=== PATIENT | male | born 1980 | race Caucasian/White ===

== ENCOUNTER 2020-04-13 08:32 | Outpatient (REF) | payer OTHER, SELFPAY ==
[2020-04-13 08:57] LABS: COVID-19 Test Negative (Negative)
== END 2020-04-13 08:33 | disposition home or self-care (01) ==
LOC: HO.EMPCOV 08:32
PROVIDERS: Visit Provider Internal Medicine
DX: Z20.822 Contact with and (suspected) exposure to COVID-19 (principal)
CPT/HCPCS: 36415; 87635; C9803

== ENCOUNTER 2020-08-05 11:02 | Outpatient (REF) | payer OTHER, SELFPAY ==
[2020-08-05 12:46] LABS: Alanine Aminotransferase 17 U/L (0-40); Albumin Level 4.7 g/dL (3.5-5.0); Alkaline Phosphatase 59 U/L (39-117); Anion Gap 16 (12-20); Aspartate Amino Transferase 21 U/L (5-37); Bilirubin Total 0.4 mg/dL (0.0-1.0); Blood Urea Nitrogen 11 mg/dL (9-16); Calcium 9.6 mg/dL (8.4-10.2); Carbon Dioxide 27 mmol/L (22-29); Chloride 102 mmol/L (96-108); Cholesterol 204 mg/dL; Estimated Glomerular Filt Rate > 60; Glucose Random 84 mg/dL (60-115); HDL Cholesterol 37 mg/dL; LDL Cholesterol Calculated 118 mg/dl; Potassium 4.6 mmol/L (3.3-5.1); Sodium 140 mmol/L (135-145); Total Protein 7.9 g/dL (6.5-8.0); Triglycerides 246 mg/dL
[2020-08-08 04:27] LABS: ~HepC Num1 0.07 S/CO (0.00-0.79); ~Hepatitis C Antibody Nonreactive (Nonreactive)
== END 2020-08-05 11:03 | disposition home or self-care (01) ==
LOC: HO.LAB 11:02
PROVIDERS: PCP Internal Medicine; Visit Provider Internal Medicine
DX: Z11.59 Encounter for screening for other viral diseases (principal); E78.5 Hyperlipidemia, unspecified
CPT/HCPCS: 36415; 80053; 80061; 86803

== ENCOUNTER 2022-01-29 15:26 | Outpatient (REF) | payer OTHER, SELFPAY ==
--- NOTE | ~2022-01-29 | XR_ITS ---
EXAMINATION: X-RAY RIGHT HAND X-RAY LEFT HAND CLINICAL INFORMATION: Pain. COMPARISON: None TECHNIQUE: 3 views of each hand. FINDINGS: Right hand: No acute fracture or malalignment. Mild joint space narrowing of the first carpometacarpal joint and triscaphe space. No erosions or chondrocalcinosis. No abnormal soft tissue calcifications. Left hand: No acute fracture or malalignment. Mild joint space narrowing of the first carpometacarpal joint and triscaphe space. No erosions or chondrocalcinosis. No abnormal soft tissue calcifications. XR/XR hand RT min 3V IMPRESSION: 1. No acute fracture or malalignment. 2. Mild degenerative osteoarthritis of the first carpometacarpal joints and triscaphe joints bilaterally.
--- NOTE | ~2022-01-29 | XR_ITS ---
EXAMINATION: X-RAY RIGHT HAND X-RAY LEFT HAND CLINICAL INFORMATION: Pain. COMPARISON: None TECHNIQUE: 3 views of each hand. FINDINGS: Right hand: No acute fracture or malalignment. Mild joint space narrowing of the first carpometacarpal joint and triscaphe space. No erosions or chondrocalcinosis. No abnormal soft tissue calcifications. Left hand: No acute fracture or malalignment. Mild joint space narrowing of the first carpometacarpal joint and triscaphe space. No erosions or chondrocalcinosis. No abnormal soft tissue calcifications. XR/XR hand LT min 3V IMPRESSION: 1. No acute fracture or malalignment. 2. Mild degenerative osteoarthritis of the first carpometacarpal joints and triscaphe joints bilaterally.
== END 2022-01-29 15:27 | disposition home or self-care (01) ==
LOC: HO.XRAY 15:26
PROVIDERS: Visit Provider Internal Medicine
DX: M79.642 Pain in left hand (principal); M79.641 Pain in right hand
CPT/HCPCS: 73130

== ENCOUNTER → 2022-05-16 09:50 | Outpatient (BNVA) | payer OTHER, SELFPAY | PROVIDERS: PCP Internal Medicine; Visit Provider Student in an Organized Health Care Education/Training Program | DX: Z13.89 Encounter for screening for other disorder (principal) ==

== ENCOUNTER 2022-06-26 11:42 | Outpatient (REF) | payer OTHER, SELFPAY ==
[2022-06-29 11:29] LABS: Immunoglobulin E 440 kU/L (<OR=114)
== END 2022-06-26 11:43 | disposition home or self-care (01) ==
LOC: HO.LAB 11:42
PROVIDERS: PCP Internal Medicine; Visit Provider Otolaryngology
DX: J30.89 Other allergic rhinitis (principal)
CPT/HCPCS: 36415; 82785; 86003

== ENCOUNTER 2024-08-03 09:59 | Outpatient (REF) | payer OTHER, SELFPAY ==
[2024-08-03 11:22] LABS: Alanine Aminotransferase 26 U/L (0-40); Albumin Level 4.8 g/dL (3.5-5.0); Anion Gap 12 (12-20); Aspartate Amino Transferase 25 U/L (5-37); Bilirubin Total 0.5 mg/dL (0.0-1.0); Blood Urea Nitrogen 14 mg/dL (9-16); Calcium 9.4 mg/dL (8.4-10.2); Carbon Dioxide 29 mmol/L (22-29); Chloride 102 mmol/L (96-108); Cholesterol 200 mg/dL (<200); Estimated Glomerular Filt Rate > 60; Glucose Random 97 mg/dL (60-115); HDL Cholesterol 38 mg/dL (>40); LDL Cholesterol Calculated 121 mg/dL (<100); Potassium 3.9 mmol/L (3.3-5.1); Sodium 139 mmol/L (135-145); Total Protein 7.8 g/dL (6.5-8.0); Triglycerides 206 mg/dL (<150)
[2024-08-03 12:22] LABS: Alkaline Phosphatase 67 U/L (39-117)
== END 2024-08-03 10:00 | disposition home or self-care (01) ==
LOC: HO.LAB 09:59
PROVIDERS: PCP Internal Medicine; Visit Provider Internal Medicine
DX: E78.5 Hyperlipidemia, unspecified (principal)
CPT/HCPCS: 36415; 80053; 80061